=== PATIENT | female | born 1970 | race Caucasian/White ===

== ENCOUNTER → 2016-08-31 | Outpatient (CLI) | payer BC ==
--- NOTE | 2016-08-31 14:20 | CT ---
CT of the abdomen and pelvis without contrast. HISTORY: Pain TECHNIQUE: Axial CT images were obtained of the abdomen and pelvis without contrast. Coronal and sag ittal reconstructions obtained. FINDINGS: The lung bases are clear, no pleural effusion. There is a tiny hiatal hernia. The liver, spleen, adrenal glands, and pancreas appear unremarkable for noncontrast examination. The gallbladder appears normal. There is no bulky retroperitoneal lymphadenopathy. No abdominal ascite s. There are no calcifications noted within the kidneys or along the courses of the ureters bilaterally . The large and small bowel are normal in caliber without evidence of obstruction. The appendix appear s normal. There is no bulky pelvic lymphadenopathy. No free fluid. No free air. The urinary bladder appears normal. There is a 4.6 cm subserosal fibroid along the anterior aspect of the uterus. Uterus is moderately increased in size and heterogeneous likely containing multiple intramural fibroids. S mall renal cysts are noted bilaterally. No bulky pelvic lymphadenopathy or free pelvic fluid. The visualized osseous structures appear normal. IMPRESSION: 1. Enlarged heterogeneous uterus likely containing multiple fibroids. Further evaluation is needed c onsider ultrasound. 2. Small bilateral ovarian cysts are noted measuring up to 3.5 cm. 3. Otherwise no acute findings within the abdomen or pelvis.
== END ==
LOC: MW.DI 10:37
PROVIDERS: ATTEND Nurse Practitioner Family
DX: R10.9 Unspecified abdominal pain (principal); N85.2 Hypertrophy of uterus
CPT/HCPCS: 74176; 74176-26

== ENCOUNTER 2016-09-23 08:50 | Day surgery (SDC) | payer BC ==
[2016-09-22 16:01] LABS: CHLORIDE,CL 106 mmol/L (98-110); SODIUM,NA 138 mmol/L (136-146)
[~2016-09-23 08:50] MED LIST: Sodium Chloride 0.9% 10 ML Syringe FLUSH PRN; Sodium Chloride 0.9% 2.5 ML Syringe FLUSH PRN; ceFAZolin 2 GM in Premix Bag 1 BAG IV ONE
[2016-09-23] MEDS: Lactated Ringers 1,000 ML IV SCH ×2 (09:17→21:35)
[2016-09-23] MEDS ORDERED: fentaNYL 250 MCG/5 ML SDV ONE ×2 (10:07→13:58)
[2016-09-23] MEDS ORDERED: Midazolam 1 MG/ML 2 ML SDV ONE (10:07)
[2016-09-23] MEDS ORDERED: Ondansetron 4 MG/2 ML SDV ONE (10:07)
[2016-09-23] MEDS ORDERED: Propofol 200 MG/20 ML SDV ONE (10:07)
[2016-09-23] MEDS ORDERED: Lidocaine 2% 5 ML SDV ONE (10:07)
[2016-09-23] MEDS ORDERED: Rocuronium 10 MG/ML 10 ML Syringe ONE (10:07)
[2016-09-23] MEDS ORDERED: Neostigmine Methylsulfate 1 MG/ML 5 ML Syringe ONE (10:08)
[2016-09-23] MEDS ORDERED: Labetalol 5 MG/ML 5 ML Syringe ONE (10:10)
--- NOTE | 2016-09-23 10:14 | PCM.PREANE ---
Preanesthetic Assessment - Anesthesia/Transfusion/Family Hx Anesthesia History: Prior Anesthesia Without Reaction Family History of Anesthesia Reaction: No - Review of Systems General: No Symptoms Pulmonary: No Symptoms Cardiovascular: No Symptoms Gastrointestinal: No symptoms Neurological: No Symptoms Other: Reports: None - Physical Assessment NPO Status Date: 09/22/16 NPO Status Time: 21:00 O2 Sat by Pulse Oximetry: 98 Respiratory Rate: 16 Vital Signs: Last Vital Signs Temp 36.5 C 09/23/16 09:14 Pulse 65 09/23/16 09:14 Resp 16 09/23/16 09:14 BP 109/73 09/23/16 09:14 Pulse Ox 98 09/23/16 09:14 Height: 1.63 m Weight: 86.183 kg ASA Class: 2 Mental Status: Alert & Oriented x3 Airway Class: Mallampati = 2 Dentition: Reports: Normal Dentition ROM/Head Extension: Full Lungs: Clear to auscultation, Normal respiratory effort Cardiovascular: Regular Rate, Regular Rhythm - Lab Values: Laboratory Last Values WBC 6.29 K/uL (4.0-11.0) 09/22/16 15:16 RBC 4.34 M/uL (4.30-5.90) 09/22/16 15:16 Hgb 12.2 g/dL (12.0-16.0) 09/22/16 15:16 Hct 36.4 % (36.0-46.0) 09/22/16 15:16 MCV 83.9 fL (80.0-98.0) 09/22/16 15:16 MCH 28.1 pg (27.0-32.0) 09/22/16 15:16 MCHC 33.5 g/dL (31.0-37.0) 09/22/16 15:16 RDW Std Deviation 42.3 fl (28.0-62.0) 09/22/16 15:16 RDW Coeff of Serge 14 % (11.0-15.0) 09/22/16 15:16 Plt Count 219 K/uL (150-400) 09/22/16 15:16 MPV 9.10 fL (7.40-12.00) 09/22/16 15:16 Nucleated RBC % 0.0 /100WBC 09/22/16 15:16 Nucleated RBCs # 0 K/uL 09/22/16 15:16 Sodium 138 mmol/L (136-146) 09/22/16 15:16 Potassium 4.1 mmol/L (3.5-5.1) 09/22/16 15:16 Chloride 106 mmol/L (98-110) 09/22/16 15:16 Carbon Dioxide 24 mmol/L (21-31) 09/22/16 15:16 BUN 15 mg/dL (6.0-23.0) 09/22/16 15:16 Creatinine 0.9 mg/dL (0.6-1.5) 09/22/16 15:16 Est Cr Clr Drug Dosing 68.16 mL/min 09/22/16 15:16 Estimated GFR (MDRD) > 60.0 ml/min 09/22/16 15:16 Glucose 95 mg/dL (60-110) 09/22/16 15:16 Calcium 8.9 mg/dL (8.8-10.8) 09/22/16 15:16 HCG, Qual NEGATIVE (NEG) 09/22/16 15:16 Blood Type A NEGATIVE 09/22/16 15:16 Antibody Screen NEGATIVE 09/22/16 15:16 - Allergies Allergies/Adverse Reactions: Allergies Allergy/AdvReac Type Severity Reaction Status Date / Time banana Allergy Itching Verified 09/20/16 13:06 latex Allergy Itching Verified 09/20/16 13:06 Penicillins Allergy Swelling Verified 09/20/16 13:06 strawberry Allergy Rash Verified 09/20/16 13:06 tree nuts Allergy Itching Uncoded 09/20/16 13:06 - Anesthesia Plan Pre-Op Medication Ordered: None - Acknowledgements Anesthesia Type Planned: General Anesthesia Pt an Appropriate Candidate for the Planned Anesthesia: Yes Alternatives and Risks of Anesthesia Discussed w Pt/Guardian: Yes Pt/Guardian Understands and Agrees with Anesthesia Plan: Yes PreAnesthesia Questionnaire Respiratory History: Reports: Asthma Other Respiratory History: sports induced asthma 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 Musculoskeletal History: right knee surgery Psychiatric History: Reports: Anxiety, Depression Endocrine/Metabolic History: Reports: Obesity/BMI 30+ Hematologic History: Reports: Anemia - Past Surgical History Head Surgeries/Procedures: Reports: None - SUBSTANCE USE Smoking Status *Q: Former Smoker Tobacco Use Within Last Twelve Months: No Second Hand Smoke Exposure: No Days Per Week of Alcohol Use: 0 Recreational Drug Use History: No - HOME MEDS Home Medications: Home Meds Albuterol Sulfate [Proair Hfa] 1 puff INH ASDIRECTED PRN 09/20/16 [History] Sertraline HCl 50 mg PO BEDTIME 09/20/16 [History] traZODone HCl [Trazodone HCl] 100 mg PO BEDTIME 09/20/16 [History] - CURRENT (IN HOUSE) MEDS Current Meds: Current Medications Lactated Ringer's (Ringers, Lactated) 1,000 mls @ 125 mls/hr IV ASDIRECTED MADIE Last Admin: 09/23/16 09:17 Dose: 125 mls/hr Sodium Chloride (Saline Flush) 10 ml FLUSH ASDIRECTED PRN PRN Reason: Keep Vein Open Sodium Chloride (Saline Flush) 2.5 ml FLUSH ASDIRECTED PRN PRN Reason: Keep Vein Open Discontinued Medications Cefazolin Sodium/Dextrose 2 gm (/ Premix) 50 mls @ 100 mls/hr IV ONETIME ONE Stop: 09/22/16 08:53 Preanesthetic Assessment - PHYSICAL ASSESSMENT O2 Sat by Pulse Oximetry: 98 RR: 16 Vital Signs: Last Vital Signs Temp 36.5 C 09/23/16 09:14 Pulse 65 09/23/16 09:14 Resp 16 09/23/16 09:14 BP 109/73 09/23/16 09:14 Pulse Ox 98 09/23/16 09:14 Height: 1.63 m Weight: 86.183 kg NPO Status Date: 09/22/16 NPO Status Time: 21:00 - LAB Values: Laboratory Last Values WBC 6.29 K/uL (4.0-11.0) 09/22/16 15:16 RBC 4.34 M/uL (4.30-5.90) 09/22/16 15:16 Hgb 12.2 g/dL (12.0-16.0) 09/22/16 15:16 Hct 36.4 % (36.0-46.0) 09/22/16 15:16 MCV 83.9 fL (80.0-98.0) 09/22/16 15:16 MCH 28.1 pg (27.0-32.0) 09/22/16 15:16 MCHC 33.5 g/dL (31.0-37.0) 09/22/16 15:16 RDW Std Deviation 42.3 fl (28.0-62.0) 09/22/16 15:16 RDW Coeff of Serge 14 % (11.0-15.0) 09/22/16 15:16 Plt Count 219 K/uL (150-400) 09/22/16 15:16 MPV 9.10 fL (7.40-12.00) 09/22/16 15:16 Nucleated RBC % 0.0 /100WBC 09/22/16 15:16 Nucleated RBCs # 0 K/uL 09/22/16 15:16 Sodium 138 mmol/L (136-146) 09/22/16 15:16 Potassium 4.1 mmol/L (3.5-5.1) 09/22/16 15:16 Chloride 106 mmol/L (98-110) 09/22/16 15:16 Carbon Dioxide 24 mmol/L (21-31) 09/22/16 15:16 BUN 15 mg/dL (6.0-23.0) 09/22/16 15:16 Creatinine 0.9 mg/dL (0.6-1.5) 09/22/16 15:16 Est Cr Clr Drug Dosing 68.16 mL/min 09/22/16 15:16 Estimated GFR (MDRD) > 60.0 ml/min 09/22/16 15:16 Glucose 95 mg/dL (60-110) 09/22/16 15:16 Calcium 8.9 mg/dL (8.8-10.8) 09/22/16 15:16 HCG, Qual NEGATIVE (NEG) 09/22/16 15:16 Blood Type A NEGATIVE 09/22/16 15:16 Antibody Screen NEGATIVE 09/22/16 15:16 - ALLERGIES Allergies/Adverse Reactions: Allergies Allergy/AdvReac Type Severity Reaction Status Date / Time banana Allergy Itching Verified 09/20/16 13:06 latex Allergy Itching Verified 09/20/16 13:06 Penicillins Allergy Swelling Verified 09/20/16 13:06 strawberry Allergy Rash Verified 09/20/16 13:06 tree nuts Allergy Itching Uncoded 09/20/16 13:06
[2016-09-23] MEDS ORDERED: Morphine 10 MG/ML Syringe ONE (10:23)
[2016-09-23] MEDS ORDERED: ePHEDrine 50 MG/ML SDV ONE (11:47)
[2016-09-23] MEDS ORDERED: ceFAZolin 1 GM Vial ONE (13:33)
[2016-09-23] MEDS ORDERED: Sodium Chloride 0.9% 20 ML ONE (13:33)
[2016-09-23] MEDS ORDERED: Fluorescein 5 ML Vial ONE (13:54)
[2016-09-23] MEDS ORDERED: Furosemide 40 MG/4 ML VIAL ONE (14:57)
[2016-09-23] MEDS ORDERED: Octyl 2-Cyanoacrylate 1 Tube ONE (15:29)
[2016-09-23] MEDS ORDERED: Acetaminophen/oxyCODONE 325-5 MG Tab PO PRN (15:39)
[2016-09-23] MEDS ORDERED: Morphine 4 MG/ML Syringe IVPUSH PRN (15:39)
[2016-09-23] MEDS ORDERED: Ketorolac 30 MG/ML SDV IVPUSH ONE (15:39)
[2016-09-23] MEDS ORDERED: Ondansetron 4 MG/2 ML SDV IVPUSH PRN (15:39)
[2016-09-23] MEDS ORDERED: Promethazine 25 MG/ML SDV IM PRN (15:39)
[2016-09-23] MEDS ORDERED: Morphine 2 MG/ML Syringe IVPUSH PRN (15:39)
--- NOTE | 2016-09-23 15:43 | PCM.OPNOTE ---
- General Post-Op/Procedure Note Date of Surgery/Procedure: 09/23/16 Operative Procedure(s): TLH Bilat sa;pengectomy, cystoscopy Post-Op Diagnosis: Same Anesthesia Technique: General ET tube Primary Surgeon: Daniel Mayers EBL in mLs: 600 Complications: None Condition: Good Free Text/Narrative:: Intake & Output 09/23/16 09/23/16 09/23/16 06:59 14:59 22:59 Intake Total 1200 Balance 1200
[2016-09-23] MEDS: fentaNYL 100 MCG/2 ML SDV IVPUSH PRN ×4 (16:05→16:39)
--- NOTE | 2016-09-23 17:27 | PCM.POSTAN ---
POST ANESTHESIA ASSESSMENT - MENTAL STATUS Mental Status: alert, oriented - RESPIRATORY Respiratory Status: respiratory rate WNL, airway patent, O2 saturation stable, supplemental oxygen - CARDIOVASCULAR CV Status: pulse rate WNL, blood pressure stable - GASTROINTESTINAL GI Status: no symptoms - PAIN Pain Score: 3 - POST OP HYDRATION Hydration Status: adequate & stable - OBSERVATIONS Free Text/Narrative:: Pt's nausea resolved with phenergan. VSS. No apparent anesthesia complications.
[2016-09-23] MEDS: Ketorolac 30 MG/ML SDV IVPUSH PRN (17:45)
--- NOTE | 2016-09-23 23:25 | OR ---
SURGEON: Daniel Mayers MD DATE OF PROCEDURE: PREOPERATIVE DIAGNOSIS: Menometrorrhagia, fibroid uterus. POSTOPERATIVE DIAGNOSIS: Menometrorrhagia, fibroid uterus. OPERATION PERFORMED: Total laparoscopic hysterectomy and laparoscopic bilateral salpingectomy, preserving both ovaries, vaginal morcellation of the uterus, and cystoscopy. CAT SCANNER OPERATOR: OR tech. ANESTHESIA: General endotracheal intubation by Abdi Lopez and Dr. Crespo. ESTIMATED BLOOD LOSS: 600 mL. COMPLICATIONS: None. FINDINGS: Uterus is about 15-16 week size with multiple fibroids. Both ovaries are essentially normal. INDICATIONS: Please refer to the admit note. DESCRIPTION OF PROCEDURE: The patient was brought to the OR, properly identified. After adequate level of general anesthesia, patient was placed in lithotomy position, was prepped and draped in sterile fashion as usual. A weighted speculum was placed in vagina. Blackwell catheter placed in the bladder for drainage and the VCare manipulator placed in the uterus for manipulation. The operation shifted abdominally. Stab wound done beneath the umbilicus. The Veress needle was placed in the peritoneal cavity and that cavity insufflated with 6 L of carbon dioxide. The skin incision was enlarged to accommodate 5-mm trocar and 5-mm scope utilizing the Visiport technique to enter. Once we entered, the patient was placed in steep Trendelenburg. A 10-12 trocar placed in the left iliac fossa and two 5 mm trocars; one suprapubically, one in the right iliac fossa under direct vision. The operation was started by identifying the landmark of the pelvis and then the superior pedicle coagulated, transected using the NASIM-7 Harmonic scapula. The tubes included with the specimen. The ovary is preserved. The round ligament was done in the same way and then the anterior leaf of the broad ligament dissected down more medially, pushing the bladder completely away from the operative field. The bladder dissected completely away from the operative field and skeletonization of the uterine vessel. The vessel is identified and coagulated transected easily on the left side; however, in the right side it was difficult to maneuver and because there was a back bleeding from the uterus and the uterine artery and the patient losing close to about 450-500 mL of urine. However, the uterine vessel on the left side is secured and then thorough irrigation of the pelvis showed there was no oozing, no bleeding. The blood clot was removed. The vagina entered using the VCare manipulator in circular fashion detaching the cervix from its attachment to the vagina. The operation shifted vaginally, then the cervix was directed through the vagina and then we started vaginal morcellation of the uterus and once the uterus is morcellated, then it was able to be removed without any problem. Once we did that, pneumoperitoneum re-established by placing vaginal pack in the vagina and was proceeded to close the vaginal cuff laparoscopically using 2-0 PDS interrupted sutures. While we were doing that, we asked the anesthesiologist to give the patient 5 mL to give and then once this is done, the abdomen deflated and then Blackwell catheter is removed. Cystoscopy performed, the bladder was intact. Both ureteric orifices were seen with the dye coming from both of them. Thus, the patency of both ureters verified. Satisfied with these findings, the laparoscopic instruments and trocars retrieved and the multiple laparoscopic incision closed in layer and Dermabond. Instrument and sponge count was correct. The patient tolerated the procedure well, went to recovery room in stable general condition. ANDRY / CHRISTELLE /[id number]
[2016-09-24] MEDS: Ketorolac 30 MG/ML SDV IVPUSH PRN (00:42)
[2016-09-24] MEDS: Lactated Ringers 1,000 ML IV SCH (05:45)
[2016-09-24] MEDS: Acetaminophen/oxyCODONE 325-5 MG Tab PO PRN ×2 (05:51→11:45)
[2016-09-24 05:58] LABS: CHLORIDE,CL 108 mmol/L (98-110); SODIUM,NA 138 mmol/L (136-146)
[2016-09-24 09:55] VITALS: BP 104/59
--- NOTE | 2016-09-24 11:03 | PCM.SURGPN ---
- General Info Date of Service: 09/24/16 Functional Status: Reports: pain controlled - Review of Systems General: Reports: No Symptoms HEENT: Reports: no symptoms Pulmonary: Reports: no symptoms Cardiovascular: Reports: No Symptoms Gastrointestinal: Reports: No symptoms Genitourinary: Reports: no symptoms Musculoskeletal: Reports: no symptoms Skin: Reports: no symptoms Neurological: Reports: No Symptoms Psychiatric: Reports: no symptoms - Patient Data Vitals - most recent: Last Vital Signs Temp 36.7 C 09/24/16 09:30 Pulse 89 09/24/16 09:30 Resp 17 09/24/16 09:30 BP 104/59 L 09/24/16 09:30 Pulse Ox 94 L 09/24/16 09:30 Weight - most recent: 86.183 kg I&O - last 24 hours: Intake & Output 09/23/16 09/24/16 09/24/16 22:59 06:59 14:59 Intake Total 2500 Output Total 650 Balance 1850 Lab Results last 24 hrs: Laboratory Results - last 24 hr 09/22/16 09/22/16 09/22/16 Range/Units 15:16 15:16 15:16 WBC 6.29 (4.0-11.0) K/uL RBC 4.34 (4.30-5.90) M/uL Hgb 12.2 (12.0-16.0) g/dL Hct 36.4 (36.0-46.0) % MCV 83.9 (80.0-98.0) fL MCH 28.1 (27.0-32.0) pg MCHC 33.5 (31.0-37.0) g/dL RDW Std Deviation 42.3 (28.0-62.0) fl RDW Coeff of Serge 14 (11.0-15.0) % Plt Count 219 (150-400) K/uL MPV 9.10 (7.40-12.00) fL Neut % (Auto) (48.0-80.0) % Lymph % (Auto) (16.0-40.0) % Real % (Auto) (0.0-15.0) % Eos % (Auto) (0.0-7.0) % Baso % (Auto) (0.0-1.5) % Neut # (Auto) (1.4-5.7) K/uL Lymph # (Auto) (0.6-2.4) K/uL Real # (Auto) (0.0-0.8) K/uL Eos # (Auto) (0.0-0.7) K/uL Baso # (Auto) (0.0-0.1) K/uL Nucleated RBC % 0.0 /100WBC Nucleated RBCs # 0 K/uL Sodium 138 (136-146) mmol/L Potassium 4.1 (3.5-5.1) mmol/L Chloride 106 (98-110) mmol/L Carbon Dioxide 24 (21-31) mmol/L BUN 15 (6.0-23.0) mg/dL Creatinine 0.9 (0.6-1.5) mg/dL Est Cr Clr Drug Dosing 68.16 mL/min Estimated GFR (MDRD) > 60.0 ml/min Glucose 95 (60-110) mg/dL Calcium 8.9 (8.8-10.8) mg/dL HCG, Qual NEGATIVE (NEG) Blood Type Antibody Screen Crossmatch 09/22/16 09/23/16 09/24/16 Range/Units 15:16 21:32 05:08 WBC 7.21 (4.0-11.0) K/uL RBC 3.21 L (4.30-5.90) M/uL Hgb 9.5 L 8.8 L (12.0-16.0) g/dL Hct 29.0 L 27.3 L (36.0-46.0) % MCV 85.0 (80.0-98.0) fL MCH 27.4 (27.0-32.0) pg MCHC 32.2 (31.0-37.0) g/dL RDW Std Deviation 41.9 (28.0-62.0) fl RDW Coeff of Serge 14 (11.0-15.0) % Plt Count 164 (150-400) K/uL MPV 9.00 (7.40-12.00) fL Neut % (Auto) 71.8 (48.0-80.0) % Lymph % (Auto) 18.0 (16.0-40.0) % Real % (Auto) 8.6 (0.0-15.0) % Eos % (Auto) 1.5 (0.0-7.0) % Baso % (Auto) 0.1 (0.0-1.5) % Neut # (Auto) 5.2 (1.4-5.7) K/uL Lymph # (Auto) 1.3 (0.6-2.4) K/uL Real # (Auto) 0.6 (0.0-0.8) K/uL Eos # (Auto) 0.1 (0.0-0.7) K/uL Baso # (Auto) 0.0 (0.0-0.1) K/uL Nucleated RBC % 0.0 /100WBC Nucleated RBCs # 0 K/uL Sodium (136-146) mmol/L Potassium (3.5-5.1) mmol/L Chloride (98-110) mmol/L Carbon Dioxide (21-31) mmol/L BUN (6.0-23.0) mg/dL Creatinine (0.6-1.5) mg/dL Est Cr Clr Drug Dosing mL/min Estimated GFR (MDRD) ml/min Glucose (60-110) mg/dL Calcium (8.8-10.8) mg/dL HCG, Qual (NEG) Blood Type A NEGATIVE Antibody Screen NEGATIVE Crossmatch See Detail 09/24/16 Range/Units 05:08 WBC (4.0-11.0) K/uL RBC (4.30-5.90) M/uL Hgb (12.0-16.0) g/dL Hct (36.0-46.0) % MCV (80.0-98.0) fL MCH (27.0-32.0) pg MCHC (31.0-37.0) g/dL RDW Std Deviation (28.0-62.0) fl RDW Coeff of Serge (11.0-15.0) % Plt Count (150-400) K/uL MPV (7.40-12.00) fL Neut % (Auto) (48.0-80.0) % Lymph % (Auto) (16.0-40.0) % Real % (Auto) (0.0-15.0) % Eos % (Auto) (0.0-7.0) % Baso % (Auto) (0.0-1.5) % Neut # (Auto) (1.4-5.7) K/uL Lymph # (Auto) (0.6-2.4) K/uL Real # (Auto) (0.0-0.8) K/uL Eos # (Auto) (0.0-0.7) K/uL Baso # (Auto) (0.0-0.1) K/uL Nucleated RBC % /100WBC Nucleated RBCs # K/uL Sodium 138 (136-146) mmol/L Potassium 4.0 (3.5-5.1) mmol/L Chloride 108 (98-110) mmol/L Carbon Dioxide 24 (21-31) mmol/L BUN 11 (6.0-23.0) mg/dL Creatinine 0.8 (0.6-1.5) mg/dL Est Cr Clr Drug Dosing 76.68 mL/min Estimated GFR (MDRD) > 60.0 ml/min Glucose 88 (60-110) mg/dL Calcium 7.5 L (8.8-10.8) mg/dL HCG, Qual (NEG) Blood Type Antibody Screen Crossmatch Med Orders - Current: Current Medications Fentanyl (Sublimaze) 50 mcg IVPUSH .Q5MIN PRN PRN Reason: Pain Stop: 09/27/16 15:56 Last Admin: 09/23/16 16:39 Dose: 50 mcg Lactated Ringer's (Ringers, Lactated) 1,000 mls @ 125 mls/hr IV ASDIRECTED [facility] Last Admin: 09/24/16 05:45 Dose: 125 mls/hr Ketorolac Tromethamine (Toradol) 30 mg IVPUSH Q6H PRN PRN Reason: Pain (severe 7-10) Stop: 09/28/16 15:39 Last Admin: 09/24/16 00:42 Dose: 30 mg Morphine Sulfate (Morphine) 2 mg IVPUSH Q2H PRN PRN Reason: Pain (severe 7-10) Morphine Sulfate (Morphine) 4 mg IVPUSH Q2H PRN PRN Reason: Pain (severe 7-10) Ondansetron HCl (Zofran) 4 mg IVPUSH Q6H PRN PRN Reason: Nausea/Vomiting Oxycodone/Acetaminophen (Percocet 325-5 Mg) 1 tab PO Q4H PRN PRN Reason: Pain (moderate 4-6) Last Admin: 09/24/16 05:51 Dose: 1 tab Oxycodone/Acetaminophen (Percocet 325-5 Mg) 2 tab PO Q4H PRN PRN Reason: Pain (moderate 4-6) Promethazine HCl (Phenergan) 25 mg IM Q6H PRN PRN Reason: Nausea/Vomiting Last Admin: 09/23/16 16:34 Dose: 25 mg Sodium Chloride (Saline Flush) 10 ml FLUSH ASDIRECTED PRN PRN Reason: Keep Vein Open Sodium Chloride (Saline Flush) 2.5 ml FLUSH ASDIRECTED PRN PRN Reason: Keep Vein Open Discontinued Medications Cefazolin Sodium (Ancef) Confirm Administered Dose 2 gm .ROUTE .STK-MED ONE Stop: 09/23/16 13:34 Ephedrine Sulfate (Ephedrine Sulfate) Confirm Administered Dose 50 mg .ROUTE .STK-MED ONE Stop: 09/23/16 11:48 Fentanyl (Sublimaze) Confirm Administered Dose 250 mcg .ROUTE .STK-MED ONE Stop: 09/23/16 10:08 Fentanyl (Sublimaze) Confirm Administered Dose 250 mcg .ROUTE .STK-MED ONE Stop: 09/23/16 13:59 Fluorescein Sodium (Ak-Fluor) Confirm Administered Dose 5 ml .ROUTE .STK-MED ONE Stop: 09/23/16 13:55 Furosemide (Lasix) Confirm Administered Dose 40 mg .ROUTE .STK-MED ONE Stop: 09/23/16 14:58 Glycopyrrolate () Confirm Administered Dose 1 mg .ROUTE .STK-MED ONE Stop: 09/23/16 10:09 Cefazolin Sodium/Dextrose 2 gm (/ Premix) 50 mls @ 100 mls/hr IV ONETIME ONE Stop: 09/22/16 08:53 Last Admin: 09/23/16 18:28 Dose: Not Given Sodium Chloride (Normal Saline) Confirm Administered Dose 20 mls @ as directed .ROUTE .STK-MED ONE Stop: 09/23/16 13:34 Ketorolac Tromethamine (Toradol) 30 mg IVPUSH ONETIME ONE Stop: 09/23/16 15:40 Labetalol HCl (Normodyne) Confirm Administered Dose 25 mg .ROUTE .STK-MED ONE Stop: 09/23/16 10:11 Lidocaine (Xylocaine-Mpf 2%) Confirm Administered Dose 5 ml .ROUTE .STK-MED ONE Stop: 09/23/16 10:08 Midazolam HCl (Versed 1 Mg/Ml) Confirm Administered Dose 2 mg .ROUTE .STK-MED ONE Stop: 09/23/16 10:08 Morphine Sulfate (Morphine) Confirm Administered Dose 10 mg .ROUTE .STK-MED ONE Stop: 09/23/16 10:24 Neostigmine Methylsulfate (Neostigmine) Confirm Administered Dose 5 mg .ROUTE .STK-MED ONE Stop: 09/23/16 10:09 Octyl Cyanoacrylate (Dermabond Advance) Confirm Administered Dose 1 applic .ROUTE .STK-MED ONE Stop: 09/23/16 15:30 Ondansetron HCl (Zofran) Confirm Administered Dose 4 mg .ROUTE .STK-MED ONE Stop: 09/23/16 10:08 Propofol (Diprivan 20 Ml) Confirm Administered Dose 200 mg .ROUTE .STK-MED ONE Stop: 09/23/16 10:08 Rocuronium [place] (Zemuron) Confirm Administered Dose 100 mg .ROUTE .STK-MED ONE Stop: 09/23/16 10:08 - Exam Wound/Incisions: healing well General: alert, oriented HEENT: Pupils equal Neck: supple Lungs: Clear to auscultation, Normal respiratory effort Cardiovascular: Regular Rate, Regular Rhythm Abdomen: bowel sounds present, soft, no tenderness, no distension Extremities: no edema Skin: warm, dry, intact Neurological: no new focal deficit Psy/Mental Status: alert, normal affect, normal mood - Problem List Review Problem List Initiated/Reviewed/Updated: Yes - My Orders Last 24 Hours: Active Orders 24 hr Category Date Time Status Patient Status [ADT] Routine ADT 09/23/16 15:39 Active Notify Provider Vital Signs [RC] ASDIRECTED Care 09/23/16 15:39 Active RT Incentive Spirometry [RC] Q2HWA Care 09/23/16 15:39 Active Up With Assistance [RC] PER UNIT ROUTINE Care 09/23/16 15:39 Active Up ad Ledy [RC] PER UNIT ROUTINE Care 09/23/16 15:39 Active Urinary Catheter Removal [RC] Per Unit Routine Care 09/23/16 15:39 Active Regular Diet [DIET] Diet 09/23/16 Dinner Active RED BLOOD CELLS LP [BBK] Stat Lab 09/23/16 14:27 Results Acetaminophen/oxyCODONE [Percocet 325-5 MG] Med 09/23/16 15:39 Active 1 tab PO Q4H PRN Acetaminophen/oxyCODONE [Percocet 325-5 MG] Med 09/23/16 15:39 Active 2 tab PO Q4H PRN Ketorolac [Toradol] Med 09/23/16 15:39 Active 30 mg IVPUSH Q6H PRN Morphine Med 09/23/16 15:39 Active 2 mg IVPUSH Q2H PRN Morphine Med 09/23/16 15:39 Active 4 mg IVPUSH Q2H PRN Ondansetron [Zofran] Med 09/23/16 15:39 Active 4 mg IVPUSH Q6H PRN Promethazine [Phenergan] Med 09/23/16 15:39 Active 25 mg IM Q6H PRN fentaNYL [Sublimaze] Med 09/23/16 15:55 Active 50 mcg IVPUSH .Q5MIN PRN Peripheral IV Discontinue [OM.PC] Routine Oth 09/23/16 15:39 Ordered Sequential Compression Device [OM.PC] Per Unit Routine Oth 09/23/16 15:39 Ordered Resuscitation Status Routine Resus Stat 09/23/16 15:39 Ordered Medication Orders Fentanyl (Sublimaze) 50 mcg IVPUSH .Q5MIN PRN PRN Reason: Pain Stop: 09/27/16 15:56 Last Admin: 09/23/16 16:39 Dose: 50 mcg Admin: 09/23/16 16:30 Dose: 50 mcg Admin: 09/23/16 16:20 Dose: 50 mcg Admin: 09/23/16 16:05 Dose: 50 mcg Lactated Ringer's (Ringers, Lactated) 1,000 mls @ 125 mls/hr IV ASDIRECTED MADIE Last Admin: 09/24/16 05:45 Dose: 125 mls/hr Infusion: 09/24/16 05:35 Dose: 125 mls/hr Admin: 09/23/16 21:35 Dose: 125 mls/hr Infusion: 09/23/16 17:17 Dose: 125 mls/hr Admin: 09/23/16 09:17 Dose: 125 mls/hr Ketorolac Tromethamine (Toradol) 30 mg IVPUSH Q6H PRN PRN Reason: Pain (severe 7-10) Stop: 09/28/16 15:39 Last Admin: 09/24/16 00:42 Dose: 30 mg Admin: 09/23/16 17:45 Dose: 30 mg Morphine Sulfate (Morphine) 2 mg IVPUSH Q2H PRN PRN Reason: Pain (severe 7-10) Morphine Sulfate (Morphine) 4 mg IVPUSH Q2H PRN PRN Reason: Pain (severe 7-10) Ondansetron HCl (Zofran) 4 mg IVPUSH Q6H PRN PRN Reason: Nausea/Vomiting Oxycodone/Acetaminophen (Percocet 325-5 Mg) 1 tab PO Q4H PRN PRN Reason: Pain (moderate 4-6) Last Admin: 09/24/16 05:51 Dose: 1 tab Oxycodone/Acetaminophen (Percocet 325-5 Mg) 2 tab PO Q4H PRN PRN Reason: Pain (moderate 4-6) Promethazine HCl (Phenergan) 25 mg IM Q6H PRN PRN Reason: Nausea/Vomiting Last Admin: 09/23/16 16:34 Dose: 25 mg Sodium Chloride (Saline Flush) 10 ml FLUSH ASDIRECTED PRN PRN Reason: Keep Vein Open Sodium Chloride (Saline Flush) 2.5 ml FLUSH ASDIRECTED PRN PRN Reason: Keep Vein Open - Assessment Assessment (Free Text/Narrative):: Status post laparoscopic hysterectomy and cystoscopy postoperative day #1 patient doing well on regular diet she is on the left incision is clean and dry voiding without any problem lab for within normal - Plan Plan (Free Text/Narrative):: Patient will be sent home today post hysterectomy instruction is given to the patient Percocet 7.5/325 prescription is given to the patient for postoperative pain appointment for followup in one week
--- NOTE | 2016-09-25 09:49 | PCM48HPAN ---
Post Anesthesia Note - EVALUATION WITHIN 48HRS OF ANESTHETIC Vital Signs in Normal Range: Yes Patient Participated in Evaluation: No (Pt discharged without notification to anesthesia) Respiratory Function Stable: Yes Airway Patent: Yes Cardiovascular Function Stable: Yes Hydration Status Stable: Yes Pain Control Satisfactory: Yes Nausea and Vomiting Control Satisfactory: Yes Mental Status Recovered: Yes - COMMENTS/OBSERVATIONS Free Text/Narrative:: Information per nursing report.
== END 2016-09-24 14:11 | disposition home or self-care (01) ==
LOC: MW.SDS 08:50 → UNDOADMOB 19:00 → MW.OB 19:00 → UNDODISOB 09-24 12:00 → MW.SDS 09-24 14:11
PROVIDERS: ATTEND Obstetrics & Gynecology
PROC: 0UT94ZZ Resection of Uterus, Percutaneous Endoscopic Approach (ICD-10-PCS; principal; 2016-09-23)
PROC: 0UTC4ZZ Resection of Cervix, Percutaneous Endoscopic Approach (ICD-10-PCS; 2016-09-23)
PROC: 0UT74ZZ Resection of Bilateral Fallopian Tubes, Percutaneous Endoscopic Approach (ICD-10-PCS; 2016-09-23)
DX: D25.9 Leiomyoma of uterus, unspecified (principal); N80.0 Endometriosis of uterus; F41.8 Other specified anxiety disorders; J45.20 Mild intermittent asthma, uncomplicated; G47.33 Obstructive sleep apnea (adult) (pediatric); G25.81 Restless legs syndrome; E66.9 Obesity, unspecified; Z87.440 Personal history of urinary (tract) infections; Z87.891 Personal history of nicotine dependence; Z88.0 Allergy status to penicillin; Z91.018 Allergy to other foods; Z91.040 Latex allergy status; Z79.899 Other long term (current) drug therapy; Z98.890 Other specified postprocedural states; Z68.31 Body mass index [BMI] 31.0-31.9, adult
CPT/HCPCS: 36415; 58573; 80048; 84703; 85014; 85018; 85025; 85027; 86850; 86900; 86901; 86920; 86921; 86922; 88309; A9270; J0690; J1885; J1940; J2250; J2270; J2405; J2550; J3010; J7120; 00944; J2704

== ENCOUNTER 2016-09-27 18:04 | Emergency (ER) | payer BC ==
[2016-09-27] MEDS ORDERED: Morphine 10 MG/ML Syringe IV ONE (18:19)
[2016-09-27] MEDS ORDERED: Sodium Chloride 0.9% 1,000 ML IV ONE ×2 (18:19→21:24)
[2016-09-27] MEDS ORDERED: Ondansetron 4 MG/2 ML SDV IVPUSH ONE (18:19)
[2016-09-27 18:59] LABS: CHLORIDE,CL 111 mmol/L (98-110); SODIUM,NA 139 mmol/L (136-146)
[2016-09-27] MEDS ORDERED: fentaNYL 100 MCG/2 ML SDV IVPUSH ONE (19:19)
--- NOTE | 2016-09-27 19:22 | EDM.PDOC ---
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 Patient indicates that the pain is intractable despite by mouth pain meds given during discharge.] Review of systems: As per history of present illness and below otherwise all systems reviewed and negative. Past medical history: As per history of present illness and as reviewed below otherwise noncontributory. Surgical history: As per history of present illness and as reviewed below otherwise noncontributory. Social history: No reported history of drug or alcohol abuse. Family history: As per history of present illness and as reviewed below otherwise noncontributory. Physical exam: HEENT: Atraumatic, normocephalic, pupils reactive, negative for conjunctival pallor or scleral icterus, mucous membranes moist, throat clear, neck supple, nontender, trachea midline. Lungs: Clear to auscultation, breath sounds equal bilaterally, chest nontender. Heart: S1S2, regular, negative for clicks, rubs, or JVD. Abdomen: Soft, nondistended, nontender. Negative for masses or hepatosplenomegaly. Negative for costovertebral tenderness. Pelvis: Stable nontender. Genitourinary: Deferred. Rectal: Deferred. Extremities: Atraumatic, negative for cords or calf pain. Neurovascular unremarkable. Neuro: Awake, alert, oriented. Cranial nerves II through XII unremarkable. Cerebellum unremarkable. Motor and sensory unremarkable throughout. Exam nonfocal. As the study were negative. Will increase pain medication and followup with WEAVING PROFESSOR in the morning. Diagnostics: [CT of abdomen without contrast, CBC, CMP] Therapeutics: [IV, morphine, Zofran, fentanyl] Impression: [Abdominal pain status post hysterectomy] Plan: [Increased medication followup with WEAVING PROFESSOR in the a.m.] Definitive disposition and diagnosis as appropriate pending reevaluation and review of above. - Related Data Allergies/ADRs: Allergies Allergy/AdvReac Type Severity Reaction Status Date / Time banana Allergy Itching Verified 09/20/16 13:06 latex Allergy Itching Verified 09/20/16 13:06 Penicillins Allergy Swelling Verified 09/20/16 13:06 strawberry Allergy Rash Verified 09/20/16 13:06 tree nuts Allergy Itching Uncoded 09/20/16 13:06 Home Meds: Home Meds Albuterol Sulfate [Proair Hfa] 1 puff INH ASDIRECTED PRN 09/20/16 [History] Sertraline HCl 50 mg PO BEDTIME 09/20/16 [History] traZODone HCl [Trazodone HCl] 100 mg PO BEDTIME 09/20/16 [History] oxyCODONE HCl/Acetaminophen [Percocet 7.5-325 mg Tablet] 1 tab Q4H PRN 09/27/16 [History] Past Medical History Respiratory History: Reports: Asthma Other Respiratory History: sports induced asthma 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: Reports: Other Musculoskeletal History: right knee surgery Psychiatric History: Reports: Anxiety, Depression Endocrine/Metabolic History: Reports: Obesity/BMI 30+ Hematologic History: Reports: Anemia - Past Surgical History Head Surgeries/Procedures: Reports: None Social & Family History - Tobacco Use Smoking Status *Q: Former Smoker Month Tobacco Last Used: quit smoking 15 yrs ago Second Hand Smoke Exposure: No - Alcohol Use Days Per Week of Alcohol Use: 0 - Recreational Drug Use Recreational Drug Use: No ED ROS GENERAL - Review of Systems Review Of Systems: See Below (History of present illness) ED EXAM, GI/ABD - Physical Exam Exam: See Below (History of present illness) Course - Vital Signs Last Recorded V/S: Last Vital Signs Temp 36.8 C 09/27/16 21:02 Pulse 94 09/27/16 21:02 Resp 17 09/27/16 21:02 BP 129/72 09/27/16 21:02 Pulse Ox 98 09/27/16 21:02 - Orders/Labs/Meds Orders: Active Orders 24 hr Category Date Time Status Abdomen Pelvis w Cont [CT] Stat Exams 09/27/16 20:01 Taken Abdomen Pelvis wo Cont [CT] Stat Exams 09/27/16 18:20 Taken Sodium Chloride 0.9% [Normal Saline] 1,000 ml Med 09/27/16 21:24 Active IV .Bolus Medication Orders Sodium Chloride (Normal Saline) 1,000 mls @ 999 mls/hr IV .Bolus ONE Stop: 09/27/16 22:24 Last Admin: 04/03/17 21:27 Dose: 999 mls/hr Labs: Laboratory Tests 09/27/16 09/27/16 09/27/16 Range/Units 18:30 18:30 21:47 WBC 9.41 (4.0-11.0) K/uL RBC 4.08 L (4.30-5.90) M/uL Hgb 11.2 L (12.0-16.0) g/dL Hct 34.6 L (36.0-46.0) % MCV 84.8 (80.0-98.0) fL MCH 27.5 (27.0-32.0) pg MCHC 32.4 (31.0-37.0) g/dL RDW Std Deviation 42.5 (28.0-62.0) fl RDW Coeff of Serge 14 (11.0-15.0) % Plt Count 247 (150-400) K/uL MPV 9.20 (7.40-12.00) fL Neut % (Auto) 82.7 H (48.0-80.0) % Lymph % (Auto) 8.9 L (16.0-40.0) % [place] % (Auto) 5.7 (0.0-15.0) % Eos % (Auto) 2.6 (0.0-7.0) % Baso % (Auto) 0.1 (0.0-1.5) % Neut # (Auto) 7.8 H (1.4-5.7) K/uL Lymph # (Auto) 0.8 (0.6-2.4) K/uL [place] # (Auto) 0.5 (0.0-0.8) K/uL Eos # (Auto) 0.2 (0.0-0.7) K/uL Baso # (Auto) 0.0 (0.0-0.1) K/uL Nucleated RBC % 0.0 /100WBC Nucleated RBCs # 0 K/uL Sodium 139 (136-146) mmol/L Potassium 4.5 (3.5-5.1) mmol/L Chloride 111 H (98-110) mmol/L Carbon Dioxide 17 L (21-31) mmol/L BUN 9 (6.0-23.0) mg/dL Creatinine 0.9 (0.6-1.5) mg/dL Est Cr Clr Drug Dosing 68.16 mL/min Estimated GFR (MDRD) > 60.0 ml/min Glucose 155 H (60-110) mg/dL Calcium 8.5 L (8.8-10.8) mg/dL Total Bilirubin 0.9 (0.1-1.5) mg/dL AST 20 (5-40) IU/L ALT 13 (8-54) IU/L Alkaline Phosphatase 64 (40-150) Total Protein 7.7 (6.0-8.0) g/dL Albumin 3.8 (3.5-5.0) g/dL Globulin 3.9 H (2.0-3.5) g/dL Albumin/Globulin Ratio 1.0 L (1.3-2.8) Urine Color YELLOW Urine Appearance SLT CLOUDY Urine pH 6.5 (5.0-8.0) Ur Specific [place] 1.010 (1.001-1.035) Urine Protein NEGATIVE (NEGATIVE) mg/dL Urine Glucose (UA) NEGATIVE (NEGATIVE) mg/dL Urine Ketones NEGATIVE (NEGATIVE) mg/dL Urine Occult Blood LARGE H (NEGATIVE) Urine Nitrite NEGATIVE (NEGATIVE) Urine Bilirubin NEGATIVE (NEGATIVE) Urine Urobilinogen 0.2 (<2.0) EU/dL Ur Leukocyte Esterase NEGATIVE (NEGATIVE) Urine RBC 20-26 (0-2/HPF) Urine WBC 0-2 (0-5/HPF) Ur Epithelial Cells FEW (NONE-FEW) Urine Bacteria RARE (NEGATIVE) Urine Mucus LIGHT (NONE-MOD) Meds: Medications Generic Name Dose Route Start Last Admin Trade Name Freq PRN Reason Stop Dose Admin Sodium Chloride 1,000 mls @ 999 mls/hr 09/27/16 21:24 09/27/16 21:27 Normal Saline IV 09/27/16 22:24 999 mls/hr .Bolus ONE Administration Discontinued Medications Generic Name Dose Route Start Last Admin Trade Name Freq PRN Reason Stop Dose Admin Fentanyl 50 mcg 09/27/16 19:19 09/27/16 19:22 Sublimaze IVPUSH 09/27/16 19:20 50 mcg ONETIME ONE Administration Hydromorphone HCl 1 mg 09/27/16 19:58 09/27/16 20:07 Dilaudid IM 09/27/16 19:59 1 mg ONETIME ONE Administration Sodium Chloride 1,000 mls @ 999 mls/hr 09/27/16 18:19 09/27/16 18:35 Normal Saline IV 09/27/16 19:19 999 mls/hr STAT ONE Administration Iopamidol 100 ml 09/27/16 20:04 09/27/16 20:04 Isovue-370 (76%) IVPUSH 09/27/16 20:05 100 ml ONETIME STA Administration Morphine Sulfate 2 mg 09/27/16 18:19 09/27/16 18:37 Morphine IV 09/27/16 18:20 2 mg ONETIME ONE Administration Ondansetron HCl 8 mg 09/27/16 18:19 09/27/16 18:36 Zofran IVPUSH 09/27/16 18:20 8 mg ONETIME ONE Administration Oxycodone HCl 10 mg 09/27/16 21:22 09/27/16 21:42 Oxycodone PO 09/27/16 21:23 10 mg ONETIME ONE Administration Departure - Departure Time of Disposition: 22:17 Disposition: Home, Self-Care 01 Condition: good Clinical Impression: Abdominal pain Qualifiers: Abdominal location: lower abdomen, unspecified Qualified Code(s): R10.30 - Lower abdominal pain, unspecified Forms: ED Department Discharge Additional Instructions: The following information is given to patients seen in the emergency department who are being discharged to home. This information is to outline your options for follow-up care. We provide all patients seen in our emergency department with a follow-up referral. The need for follow-up, as well as the timing and circumstances, are variable depending upon the specifics of your emergency department visit. If you don't have a primary care physician on staff, we will provide you with a referral. We always advise you to contact your personal physician following an emergency department visit to inform them of the circumstance of the visit and for follow-up with them and/or the need for any referrals to a consulting specialist. The emergency department will also refer you to a specialist when appropriate. This referral assures that you have the opportunity for follow-up care with a specialist. All of these measure are taken in an effort to provide you with optimal care, which includes your follow-up. Under all circumstances we always encourage you to contact your private physician who remains a resource for coordinating your care. When calling for follow-up care, please make the office aware that this follow-up is from your recent emergency room visit. If for any reason you are refused follow-up, please contact the [facility] Emergency Department at and asked to speak to the emergency department charge nurse. Take increased pain medication to obtain pain control as discussed Followup with WEAVING PROFESSOR in a.m. as discussed Turned ED as needed as discussed - My Orders Last 24 Hours: My Active Orders 09/27/16 18:20 Abdomen Pelvis wo Cont [CT] Stat 09/27/16 20:01 Abdomen Pelvis w Cont [CT] Stat 09/27/16 21:24 Sodium Chloride 0.9% [Normal Saline] 1,000 ml IV .Bolus - Assessment/Plan Last 24 Hours: My Active Orders 09/27/16 18:20 Abdomen Pelvis wo Cont [CT] Stat 09/27/16 20:01 Abdomen Pelvis w Cont [CT] Stat 09/27/16 21:24 Sodium Chloride 0.9% [Normal Saline] 1,000 ml IV .Bolus
[2016-09-27] MEDS ORDERED: HYDROmorphone 1 MG/ML Syringe IM ONE (19:58)
[2016-09-27] MEDS ORDERED: Iopamidol 755 Mg/ML 100 ML Bottle IVPUSH STA (20:04)
[2016-09-27] MEDS ORDERED: oxyCODONE 5 MG Tab PO ONE (21:22)
[2016-09-27 22:54] VITALS: BP 111/67
--- NOTE | 2016-09-28 11:31 | CT ---
EXAM DATE: 09/27/16 PATIENT'S AGE: 46 Patient: CHRISTIE ROGERS Facility: [place], [place] Site . Site : 1970 Study: CT Abdomen/Pelvis [id number] 6:54:00 PM Ordering Physician: Doctor Gaines Final Report: Indication: Abdominal pain 4 days post hysterectomy. Technique: A CT volumetric acquisition was performed of the abdomen pelvis without IV contrast. Findings: CT images demonstrate a normal appearance of the lung bases. There is no evidence of pleural or pericardial fluid. Within the abdomen the unenhanced liver, spleen and pancreas appear normal. The gallbladder and bile ducts are normal size. The stomach appears normal. The kidneys and adrenal glands have normal morphology. There is no evidence of retroperitoneal hemorrhage or lymph node enlargement. The small intestine and small bowel mesentery appear normal. The appendix is visualized in the lower mid abdomen and appears normal. There is a trace amount of fat stranding and fluid about the upper vaginal cuff consistent with the recent postoperative state. There is no evidence of hemorrhage or abscess formation. Urinary bladder appears normal. Impression: Expected postoperative changes about the surgical resection site. No evidence of hemorrhage, abscess or bowel obstruction. Dictated by Eladio Mehta MD @ Sep 27 2016 7:15PM (Electronic Signature) Report Signed by Proxy and Original Signed Document filed in the Medical Record. [email or web address]
--- NOTE | 2016-09-28 11:36 | CT ---
EXAM DATE: 09/27/16 PATIENT'S AGE: 46 Patient: CHRISTIE ROGERS Facility: [place], [place] Site . Site : 1970 Study: CT Abdomen/Pelvis [id number] 8:38:42 PM Ordering Physician: Doctor Gaines Final Report: Indication: Epigastric pain. Comparison: Noncontrast CT abdomen pelvis performed at 6:52 p.m. Technique: A CT volumetric acquisition was performed of the abdomen and pelvis during the intravenous infusion of 1 100 cc of Isovue-370 nonionic intravenous contrast. Findings: CT images demonstrate a normal appearance of the lung bases. The liver shows normal uniform enhancement. No abnormalities are noted within the spleen. There is no evidence of mass effect or inflammation within the pancreas. I see no evidence of edema or inflammation within the gastric wall. The gallbladder and bile ducts are normal size and there is no evidence of inflammation about the gallbladder fossa. The kidneys show symmetric enhancement with no evidence of pyelonephritis. The adrenal glands appear normal. The appendix lies within the lower mid abdomen and there is a transverse orientation of the cecum. There is no evidence of inflammation or obstruction within the small intestine and no evidence of inflammation within the mesenteric fat. There is normal vascular enhancement within the iliac arteries and veins. There is no evidence of venous thrombosis. There is no evidence of contrast extravasation which would indicate active bleeding about the hysterectomy site. Urinary bladder appears normal. The ventral abdominal wall musculature appears intact. There is no evidence of a hematoma within the abdominal wall musculature. Impression: The contrast-enhanced images reveal no evidence of venous thrombosis or bleeding about the surgical site. There is no evidence of ureteral injury or bowel obstruction. Dictated by Eladio Mehta MD @ Sep 27 2016 8:54PM (Electronic Signature) Report Signed by Proxy and Original Signed Document filed in the Medical Record. RONNY
== END 2016-09-27 22:54 | disposition home or self-care (01) ==
LOC: MW.ED 18:04
DX: R10.30 Lower abdominal pain, unspecified (principal); G89.18 Other acute postprocedural pain; Z90.710 Acquired absence of both cervix and uterus; J45.909 Unspecified asthma, uncomplicated; F41.9 Anxiety disorder, unspecified; F32.9 Major depressive disorder, single episode, unspecified; E66.9 Obesity, unspecified; Z79.899 Other long term (current) drug therapy; Z91.040 Latex allergy status; Z91.018 Allergy to other foods; Z88.0 Allergy status to penicillin; Z87.891 Personal history of nicotine dependence
CPT/HCPCS: 36415; 74176; 74177; 80053; 81001; 85025; 96361; 96374; 96375; 99284; A9270; J1170; J2270; J2405; J3010; J7040; Q9967

== ENCOUNTER → 2016-11-03 | Outpatient (CLI) | payer BC ==
--- NOTE | 2016-11-03 14:58 | CR ---
EXAMINATION: Abdomen HISTORY: Left lower quadrant pain COMPARISON: CT dated 09/27/2016 TECHNIQUE: AP and upright views of the abdomen FINDINGS: Mild atelectasis within the lung bases. No definite free air under the diaphragm. There is a nonobstructive bowel gas pattern. No abnormal calcifications noted over the kidneys. No organomeg leatha. No abnormal osseous structures. IMPRESSION: Grossly unremarkable abdominal radiographs.
== END ==
LOC: MW.CHFP 13:37
PROVIDERS: ATTEND Nurse Practitioner Family
DX: R10.32 Left lower quadrant pain (principal)
CPT/HCPCS: 36415; 74020; 74020-26; 83516

== ENCOUNTER 2016-12-23 10:05 | Day surgery (SDC) | payer BC ==
[~2016-12-23 10:05] MED LIST changes: +Lactated Ringers 1,000 ML IV SCH; +Lidocaine 2% 5 ML SDV ONE; +Midazolam 1 MG/ML 2 ML SDV ONE; +Propofol 200 MG/20 ML SDV ONE; -ceFAZolin 2 GM in Premix Bag 1 BAG IV ONE; +fentaNYL 100 MCG/2 ML SDV ONE
--- NOTE | 2016-12-23 11:39 | PCM.PREANE ---
Preanesthetic Assessment - Anesthesia/Transfusion/Family Hx Anesthesia History: Prior Anesthesia Without Reaction Family History of Anesthesia Reaction: No Transfusion History: No Prior Transfusion(s) - Review of Systems General: No Symptoms Pulmonary: No Symptoms Cardiovascular: No Symptoms Gastrointestinal: No symptoms Neurological: No Symptoms Other: Reports: None - Physical Assessment NPO Status Date: 12/22/16 Height: 1.63 m Weight: 83.461 kg ASA Class: 2 Dentition: Reports: Normal Dentition ROM/Head Extension: Full Lungs: Clear to auscultation, Normal respiratory effort Cardiovascular: Regular Rate, Regular Rhythm - Allergies Allergies/Adverse Reactions: Allergies Allergy/AdvReac Type Severity Reaction Status Date / Time banana Allergy Itching Verified 09/20/16 13:06 latex Allergy Itching Verified 09/20/16 13:06 Penicillins Allergy Swelling Verified 09/20/16 13:06 strawberry Allergy Rash Verified 09/20/16 13:06 lobster Allergy Shortness Uncoded 12/22/16 08:29 of Breath tree nuts Allergy Itching Uncoded 09/20/16 13:06 - Anesthesia Plan Pre-Op Medication Ordered: None - Acknowledgements Anesthesia Type Planned: MAC Pt an Appropriate Candidate for the Planned Anesthesia: Yes Alternatives and Risks of Anesthesia Discussed w Pt/Guardian: Yes Pt/Guardian Understands and Agrees with Anesthesia Plan: Yes PreAnesthesia Questionnaire Respiratory History: Reports: Asthma Other Respiratory History: sports induced asthma Gastrointestinal History: Reports: Other (See Below) Other Gastrointestinal History: chronic abd pain Genitourinary History: Reports: None 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: Psychiatric History: Reports: Anxiety, Depression Endocrine/Metabolic History: Reports: Obesity/BMI 30+ Hematologic History: Reports: Anemia - Past Surgical History Head Surgeries/Procedures: Reports: None Female Surgical History: Reports: Hysterectomy, Other (See Below) Other Female Surgeries/Procedures: laparoscopic hysterectomy with laurie salpingectomy 09/23/16 Musculoskeletal Surgical History: Reports: Arthroscopic Knee - SUBSTANCE USE Smoking Status *Q: Former Smoker Tobacco Use Within Last Twelve Months: No Second Hand Smoke Exposure: No Days Per Week of Alcohol Use: 0 Recreational Drug Use History: No - HOME MEDS Home Medications: Home Meds Albuterol Sulfate [Proair Hfa] 1 puff INH ASDIRECTED PRN 09/20/16 [History] Sertraline HCl 50 mg PO BEDTIME 09/20/16 [History] traZODone HCl [Trazodone HCl] 100 mg PO BEDTIME 09/20/16 [History] Mupirocin Calcium [Mupirocin] 1 applic TOP BID PRN 12/22/16 [History] - CURRENT (IN HOUSE) MEDS Current Meds: Current Medications Lactated Ringer's (Ringers, Lactated) 1,000 mls @ 125 mls/hr IV ASDIRECTED MADIE Sodium Chloride (Saline Flush) 10 ml FLUSH ASDIRECTED PRN PRN Reason: Keep Vein Open Sodium Chloride (Saline Flush) 2.5 ml FLUSH ASDIRECTED PRN PRN Reason: Keep Vein Open Discontinued Medications Fentanyl (Sublimaze) Confirm Administered Dose 100 mcg .ROUTE .STK-MED ONE Stop: 12/23/16 09:45 Lidocaine (Xylocaine-Mpf 2%) Confirm Administered Dose 10 ml .ROUTE .STK-MED ONE Stop: 12/23/16 09:44 Midazolam HCl (Versed 1 Mg/Ml) Confirm Administered Dose 2 mg .ROUTE .STK-MED ONE Stop: 12/23/16 09:45 Propofol (Diprivan 20 Ml) Confirm Administered Dose 400 mg .ROUTE .STK-MED ONE Stop: 12/23/16 09:45
--- NOTE | 2016-12-23 13:46 | PCM.OPNOTE ---
- General Post-Op/Procedure Note Date of Surgery/Procedure: 12/23/16 Operative Procedure(s): Diagnostic EGD and colonoscopy Findings: Normal EGD and colonoscopy. Pre Op Diagnosis: LLQ pain Post-Op Diagnosis: same Anesthesia Technique: MAC Primary Surgeon: Ning Garcia Condition: Good
--- NOTE | 2016-12-23 14:01 | PCM.POSTAN ---
POST ANESTHESIA ASSESSMENT - MENTAL STATUS Mental Status: alert, oriented - RESPIRATORY Respiratory Status: respiratory rate WNL, airway patent, O2 saturation stable - CARDIOVASCULAR CV Status: pulse rate WNL, blood pressure stable - GASTROINTESTINAL GI Status: no symptoms - PAIN Pain Score: 0 - POST OP HYDRATION Hydration Status: adequate & stable
--- NOTE | 2016-12-23 14:01 | PCM48HPAN ---
Post Anesthesia Note - EVALUATION WITHIN 48HRS OF ANESTHETIC Vital Signs in Normal Range: Yes Patient Participated in Evaluation: Yes Respiratory Function Stable: Yes Airway Patent: Yes Cardiovascular Function Stable: Yes Hydration Status Stable: Yes Pain Control Satisfactory: Yes Nausea and Vomiting Control Satisfactory: Yes Mental Status Recovered: Yes
[2016-12-23 14:44] VITALS: BP 145/78
--- NOTE | 2016-12-24 02:04 | OR ---
SURGEON: NING GARCIA MD DATE OF PROCEDURE: 12/23/2016 PREOPERATIVE DIAGNOSIS: Chronic left lower quadrant pain. POSTOPERATIVE DIAGNOSIS: Chronic left lower quadrant pain. PROCEDURE PERFORMED: Diagnostic EGD and colonoscopy. ENDOSCOPIST: Ning Garcia MD ANESTHESIA: MAC. EXTENT OF EXAM: To the second portion of the duodenum, into the cecum. INSTRUMENT USED: Olympus colonoscope and endoscope. PREPARATION: Good. LIMITATIONS: None. INDICATION FOR EXAMINATION: The patient is a 46-year-old female who presents with several months worth of chronic left lower quadrant pain. She underwent a CT of the abdomen and pelvis which showed multiple fibroids within her uterus as well as ovarian cyst. The patient underwent a hysterectomy back in August but her pain has persisted. The patient now presents for further workup of this pain. This pain has been associated with an alteration in the patient's bowel habits as well. Given these symptoms, a decision was made to perform a diagnostic EGD and colonoscopy. We discussed the procedures as well as expected perioperative course. We discussed the risks, including bleeding, infection, or damage to surrounding structures, including perforation. The patient verbalized understanding and wishes to proceed. PROCEDURE IN DETAIL: The patient was brought into the endoscopy suite and placed in a beach chair position. A time-out was completed verifying the patient's name, age, date of , allergies, and procedure to be performed. A bite block was placed in the patient's mouth and monitored anesthesia care induced. Continuous oxygen was provided via nasal cannula throughout the procedure. After adequate sedation was achieved, the endoscope was placed in the patient's mouth and advanced under direct visualization to the level of the second portion of the duodenum. A photograph was taken of this. The duodenum appeared normal. There was no evidence of inflammation or ulceration. The scope was brought into the stomach and a photograph was taken of the pylorus and esophageal hiatus, which appeared normal. The gastric mucosa had some areas of slight erythema but overall appeared normal. Biopsies were taken of the gastric antrum, body, and fundus and sent for H. pylori and pathologic testing. The scope was then brought into the esophagus. A photograph was taken of the GE junction which appeared normal. The remainder of the esophageal mucosa showed no evidence of disease. The scope was removed from the patient and this portion of procedure terminated. The patient was placed in the left lateral decubitus position. A digital rectal exam was performed. This exam was within normal limits. A well lubricated colonoscope was then inserted in the rectum and advanced under direct visualization to the level of the cecum. The cecum was identified by both visual and anatomic landmarks. A photograph was taken of the cecal cap. I was able to retroflex the scope within the cecum. The scope was then straightened out and withdrawn while examining the color, texture, anatomy, and integrity of the mucosa from the cecum to the anal canal. No pathologic findings were noted within the colon. The scope was brought into the rectum and retroflexed for visualization of the anal canal opening. This appeared normal and photographs were taken. The scope was then straightened out and withdrawn from the patient. The cecum to anus time was 12 minutes. The patient was transferred to the recovery room in stable condition. ENDOSCOPIC DIAGNOSIS: Normal EGD and colonoscopy. RECOMMENDATIONS: Await biopsy results and follow up with the patient in 2 weeks. KETAN BOURGEOIS /[id number]
== END 2016-12-23 14:26 | disposition home or self-care (01) ==
LOC: MW.SDS 10:05
PROVIDERS: ATTEND Surgery
PROC: 0DJ08ZZ Inspection of Upper Intestinal Tract, Via Natural or Artificial Opening Endoscopic (ICD-10-PCS; principal; 2016-12-23)
PROC: 0DJD8ZZ Inspection of Lower Intestinal Tract, Via Natural or Artificial Opening Endoscopic (ICD-10-PCS; 2016-12-23)
PROC: 0DB68ZX Excision of Stomach, Via Natural or Artificial Opening Endoscopic, Diagnostic (ICD-10-PCS; 2016-12-23)
PROC: 0DJD8ZZ Inspection of Lower Intestinal Tract, Via Natural or Artificial Opening Endoscopic (ICD-10-PCS; 2016-12-23)
DX: K29.50 Unspecified chronic gastritis without bleeding (principal); F41.8 Other specified anxiety disorders; J45.20 Mild intermittent asthma, uncomplicated; G47.33 Obstructive sleep apnea (adult) (pediatric); G25.81 Restless legs syndrome; E66.9 Obesity, unspecified; Z87.440 Personal history of urinary (tract) infections; Z87.891 Personal history of nicotine dependence; Z88.0 Allergy status to penicillin; Z91.013 Allergy to seafood; Z91.018 Allergy to other foods; Z91.040 Latex allergy status; Z79.899 Other long term (current) drug therapy; Z90.710 Acquired absence of both cervix and uterus; Z90.79 Acquired absence of other genital organ(s); Z98.890 Other specified postprocedural states; Z68.31 Body mass index [BMI] 31.0-31.9, adult
CPT/HCPCS: 43239; 45378; J2250; J3010; J7120; 00740; 88305; 88312; J2704